=== PATIENT | male | born 1935 | race Caucasian/White ===

== ENCOUNTER 2019-08-14 14:12 | Inpatient (IN) | payer OTHER, MEDICARE ==
[~2019-08-14] VITALS: Ht 182.9 cm; Wt 72.3 kg
[~2019-08-14 14:12] MED LIST: ASPIRIN EC325 MG PO; DIOVAN 80 MG TA80 M1 PO; SIMVASTATIN40 MG PO; TOPROL XL25 MG PO; TOPROL XL50 MG PO; VITAMIN D31000 UNI2 PO; ZETIA10 MG PO
[2019-08-14 14:15] VITALS: BP 129/53
[2019-08-14 15:16] LABS: HEMATOCRIT 24.3 % (42.0-52.0); HEMOGLOBIN 7.9 gm/dL (14.0-18.0); MCH 28.4 pg (26.0-34.0); MCHC 32.4 g/dL (28.0-37.0); MCV 87.6 fL (80.0-100.0); PLATELET COUNT 178 thou/uL (150-400); RBC 2.77 mil/uL (4.50-6.00); RDW 16.7 % (10.5-14.5)
[2019-08-14 15:25] LABS: CALCIUM 9.4 mg/dL (8.5-10.1); CREATININE 1.2 mg/dL (0.7-1.3); POTASSIUM 3.8 mmol/L (3.5-5.1)
[2019-08-14 15:35] LABS: ALBUMIN 3.4 g/dL (3.4-5.0); TOTAL BILIRUBIN 0.7 mg/dL (<0.1-1.0); TOTAL PROTEIN 7.6 g/dL (6.4-8.2); TROPONIN-I 0.55 ng/mL (<0.06)
[2019-08-14 15:51] LABS: ABSOLUTE NEUTROPHILS 4.4 thou/uL (1.4-8.2)
[2019-08-14 15:52] LABS: ANISOCYTOSIS 1+; OVALOCYTES OCCASIONAL
[2019-08-14 17:37] VITALS: BP 115/54
[2019-08-14 18:00] VITALS: BP 127/70
[2019-08-14 18:08] LABS: % SATURATION 17 % (20-39); IRON 85 ug/dL (65-175); TIBC 486 ug/dL (250-450)
[2019-08-14 18:13] LABS: ABSOLUTE RETIC COUNT 0.1142 10^6/uL; OBSERVED RETIC COUNT 4.13 % (0.6-2.6)
[2019-08-14 18:34] LABS: FOLIC ACID 15.2 ng/mL (8.6-58.9)
--- NOTE | 2019-08-14 18:47 | NUR ---
RECEIVED PT. AT 1805; PT. A0X4; NO C/O PAIN; ST. FEELING DIZZIE & SOB WITH EXERTION; VS WNL; PT. SETTLE ON BED; HEART MONITOR APPLIED; FORMS SIGNED; WILL PASS ON REPORT;
[2019-08-14] MEDS ORDERED: COZAAR 25 MG TA25 M1 PO (19:21)
[2019-08-14] MEDS ORDERED: TORSEMIDE5 MG PO (19:21)
[2019-08-14] MEDS ORDERED: KLOR-CON 10 ER10 MEQ PO (19:22)
[2019-08-14] MEDS ORDERED: IRON 100 PLUS1 EACH PO (19:22)
[2019-08-14 20:38] VITALS: BP 98/52
[2019-08-15 01:00] VITALS: BP 108/47; BP 99/52
[2019-08-15 06:10] VITALS: BP 100/47
--- NOTE | 2019-08-15 07:51 | NUR ---
PATIENT CARES WERE ASSUMED AT SHIFT CHANGE. PATIENT WAS ASSESSED AND MEDS WERE PASSED. PATIENT WAS GIVEN ONE UNITE OF PRBC THE PATIENT HAD NO REACTION TO THIS TRANFUSION. HOURLY ROUNDING WAS DONE AND THE BED IS IN A LOW AND LOCKED POSITION
[2019-08-15 08:00] VITALS: BP 89/54
[2019-08-15 09:54] LABS: HEMATOCRIT 23.8 % (42.0-52.0); HEMOGLOBIN 7.8 gm/dL (14.0-18.0); MCH 28.7 pg (26.0-34.0); MCHC 32.8 g/dL (28.0-37.0); MCV 87.5 fL (80.0-100.0); RBC 2.72 mil/uL (4.50-6.00); RDW 16.2 % (10.5-14.5); WBC 5.2 thou/uL (4.0-11.0)
--- NOTE | 2019-08-15 10:20 | EKG ---
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: FAN : 1935 Requested By: David Batres Order Number: [id number] MD: Bari Torres Measurements Intervals [place] Rate: 98 P: 69 HI: 167 QRS: -21 QRSD: 179 T: 206 QT: 437 QTc: 559 Interpretive Statements Sinus rhythm Frequent PVCs Left bundle branch block Baseline wander in lead(s) V6 Compared to ECG 09/26/2004 06:52:39 Left bundle-branch block now present Intraventricular conduction delay no longer present Electronically Signed On 08-15-2019 10:20:40 AIRCRAFT MAINTENANCE ENGINEER by Bari Torres [email or web address] <ELECTRONICALLY SIGNED> By: Bari Torres MD 08/15/19 1020 1417 1417 Bari Torres MD /EPI
--- NOTE | 2019-08-15 10:21 | EKG ---
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: FAN : 1935 Requested By: David Batres Order Number: [id number] MD: Bari Torres Measurements Intervals [place] Rate: 72 P: 63 NE: 163 QRS: -33 QRSD: 177 T: 219 QT: 477 QTc: 523 Interpretive Statements Sinus rhythm Frequent PVCs Left bundle branch block Baseline wander in lead(s) V3 Compared to ECG 09/26/2004 06:52:39 Ventricular premature complex(es) now present Left bundle-branch block now present Intraventricular conduction delay no longer present Electronically Signed On 08-15-2019 10:21:01 SIDING COREBOARD INSPECTOR by Bari Torres [email or web address] <ELECTRONICALLY SIGNED> By: Bari Torres MD 08/15/19 1021 1544 1544 Bari Torres MD /EPI
[2019-08-15 16:00] VITALS: BP 106/44
--- NOTE | 2019-08-15 17:52 | NUR ---
ASSUMED CARE AT 0700, SHIFT ASSESSMENT DONE, MEDS GIVEN, VSS. DENIES DIZZINESS, WAS ABLE TO STAND UP AND CLEAN HIMSELF. SR, BBB, ROOM AIR. DENIES PAIN, NAUSEA, VOMITING. WILL CONTINUE TO ASSESS AND ASSIST WITH ADLs NEEDED.
[2019-08-15 19:13] VITALS: BP 80/44
[2019-08-15 23:29] VITALS: BP 86/43
[2019-08-16 04:34] LABS: HEMATOCRIT 23.1 % (42.0-52.0); HEMOGLOBIN 7.5 gm/dL (14.0-18.0); MCH 28.5 pg (26.0-34.0); MCHC 32.5 g/dL (28.0-37.0); MCV 87.8 fL (80.0-100.0); RBC 2.63 mil/uL (4.50-6.00); RDW 16.9 % (10.5-14.5); WBC 5.9 thou/uL (4.0-11.0)
[2019-08-16 04:44] LABS: CALCIUM 8.8 mg/dL (8.5-10.1); POTASSIUM 3.3 mmol/L (3.5-5.1)
--- NOTE | 2019-08-16 04:59 | NUR ---
ASSUMED PT CARE AT 1900. PT A/OX4, VITAL SIGN STABLE, ASSESSMENT CHARTED. NO COMPLAINTS OF SOB, NO COMPLAINTS OF PAIN. NO COMPLAINTS OF DIZZINESS. PT RESTED WELL THROUGH THE NIGHT. PROGRESSING TOWARD PLAN OF CARE. WILL CONTINUE TO MONITOR.
[2019-08-16 05:13] VITALS: BP 93/48
[2019-08-16 07:11] LABS: IgA 382 mg/dL (61-437); IgG 1131 mg/dL (700-1600); IgM 147 mg/dL (15-143)
--- NOTE | 2019-08-16 08:01 | HC ---
[facility] [place] [address] CONSULTATION Name: WOODY KENYON Room #: 218-P ADM IN M.R.#: [id number] Admission: 08/14/19 Attend Phys: Royal Frederick MD Discharge: Date of : 35 Report #: [id number] THIS REPORT FOR: //name// CC: Royal Stratton DATE OF SERVICE: 08/15/2019 CARDIOLOGY CONSULTATION INDICATION: Chest pain and fatigue. HISTORY OF PRESENT ILLNESS: This is an 83-year-old gentleman with a history of CABG, anemia, hypertension, carotid endarterectomy, presenting with fatigue and chest pain. The patient follows with Dr. Jerry Delarosa, last seen in June. He has a history of anemia, resumed on iron therapy this past summer. Lately, he has been having edema of the legs, started on Lasix. The patient reports feeling generalized fatigue for the past several weeks. He then developed bilateral shoulder discomfort with walking, relieved with rest and Tums. He denies any history of melena or bright red blood per rectum. There is no history of fever, chills or orthopnea. In the ER, he was found to have a hemoglobin of 7.9 and did receive a blood transfusion. PAST MEDICAL HISTORY: CAD with a CABG in 1979 and then a redo operation in 1990 with LEON to the LAD and SVG to RCA, and marginal branches. History of carotid endarterectomies. History of abdominal aortic aneurysm, history of hypertension, hypercholesterolemia and now edema. History of anemia. MEDICATIONS: At home include Toprol-XL 50 mg daily, Diovan 80 mg daily, aspirin once a day, Toprol-XL 25 mg at night, Zetia 10 mg daily, and Zocor 40 mg at night. ALLERGIES: PENICILLIN, CIPRO, CLINDAMYCIN, AND SULFA. SOCIAL HISTORY: Denies tobacco use. FAMILY HISTORY: Negative for premature CAD. REVIEW OF SYSTEMS: A full 10-point review of systems performed. Only the pertinent positives and negatives are described in the HPI. PHYSICAL EXAMINATION: VITAL SIGNS: Blood pressure is 100/60, heart rate is 81 beats per minute. GENERAL APPEARANCE: This is a well-developed, well-nourished male in no acute distress. HEENT: Normocephalic, atraumatic. Oral mucosa moist. [address] [address] CONSULTATION Name: WOODY KENYON [facility] Room #: 218-[facility] IN M.R.#: [id number] Admission: 08/14/19 Attend Phys: Royal Frederick MD Discharge: Date of : 35 Report #: [id number] NECK: Supple. LUNGS: Clear to auscultation. CARDIAC: Regular rate and rhythm, S1, S2 positive. ABDOMEN: Soft, nontender. EXTREMITIES: Trace to 1+ edema, no cyanosis. ECG reveals sinus rhythm, frequent PVCs, left bundle-branch block. LABORATORY VALUES: Peak troponin is 0.73. White count is 5.2, hemoglobin is 7.8, platelet count is 141, creatinine 1.2. ASSESSMENT AND PLAN: 1. Fatigue/weakness, most likely attributed to anemia. The etiology is unclear, has a chronic history. He did receive one transfusion, but the hemoglobin has not changed. Recommend a Hematology evaluation. 2. Coronary artery disease/coronary artery bypass graft, presenting with bilateral shoulder discomfort with exertion. Minimal troponin elevation with underlying left bundle branch block. Symptoms are exacerbated by his anemia. We will follow for now until his anemia evaluation is further evaluated. Continue with aspirin. 3. Hypertension, stable blood pressure. 4. Hypercholesterolemia, continue with statin therapy. <ELECTRONICALLY SIGNED> By: Bari Torres MD 08/16/19 0801 1106 1626 Bari Torres MD /nt
--- NOTE | 2019-08-16 10:21 | 2DMMODE ---
[facility] [place] [place] [address] 2 D/M-MODE ECHOCARDIOGRAM Name: WOODY KENYON Room #: 218-P ADM IN M.R.#: [id number] Admission: 08/14/19 Attend Phys: Lee Stratton, Discharge: Date of : 35 Report #: [id number] THIS REPORT FOR: //name// APPROVED REPORT Study performed: 08/16/2019 09:22:55 EXAM: Comprehensive 2D, Doppler, and color-flow Echocardiogram Patient Location: Echo lab Room #: 218 Status: routine BSA: 2.13 HR: 84 bpm BP: 93/48 mmHg Rhythm: Irregular Other Information Study Quality: Good Indications CHF. Hx: CABG x 2, cardiomyopathy, HTN, HLP, LBBB. 2D Dimensions RVDd: 49.33 mm IVSd: 7.91 (7-11mm) LVOT Diam: 21.63 (18-24mm) LVDd: 66.04 mm PWd: 10.65 (7-11mm) Ascending Ao: 29.51 (22-36mm) LVDs: 54.79 (25-40mm) Aortic Root: 33.15 mm Volumes Left Atrial Volume (Systole) Single Plane 4CH: 99.61 mL Single Plane 2CH: 92.08 mL LA ESV Index: 49.00 mL/m2 Aortic Valve AoV Peak Gilmer.: 1.83 m/s AO Peak Gr.: 13.37 mmHg LVOT Max P.81 mmHg AO Mean Gr.: 6.74 mmHg AO V2 Mean: 1.23 m/s LVOT Max V: 0.98 m/s AO V2 VTI: 36.20 cm TYREL Vmax: 1.96 cm2 Mitral Valve E/A Ratio: 2.0 [facility] [place] [address] 2 D/M-MODE ECHOCARDIOGRAM Name: WOODY KENYON [facility] Room #: 218-[facility] IN M.R.#: [id number] Admission: 08/14/19 Attend Phys: Lee Stratton, Discharge: Date of : 35 Report #: [id number] MV Decel. Time: 132.33 ms MV E Max Gilmer.: 1.27 m/s MV A Gilmer.: 0.63 m/s MV PHT: 38.37 ms IVRT: 96.89 ms Pulmonary Valve PV Peak Gilmer.: 1.31 m/s PV Peak Gr.: 6.91 mmHg Tricuspid Valve TR Peak Gilmer.: 3.00 m/s RAP Estimate: 5.00 mmHg TR Peak Gr.: 36.04 mmHg PA Pressure: 41.00 mmHg Left Ventricle Left ventricle is dilated. There is normal left ventricular wall thickness. Left ventricular systolic function is severely decreased. LVEF is 30%. Severe diastolic dysfunction is present (restrictive filling). Right Ventricle Right ventricle is dilated. Atria Left atrium is severely dilated. The right atrium size is normal. Aortic Valve The aortic valve is normal in structure; moderately sclerotic. No aortic regurgitation is present. There is no aortic valvular stenosis. Mitral Valve Mitral valve leaflets are mildly thickened. Moderate mitral regurgitation. Tricuspid Valve The tricuspid valve is normal in structure. Mild tricuspid regurgitation. Estimated PAP is 40-45mmHg. Pulmonic Valve The pulmonary valve is normal in structure. Mild pulmonic regurgitation. Great Vessels The aortic root is normal in size. The ascending aorta is normal in [facility] [address] [place] [address] 2 D/M-MODE ECHOCARDIOGRAM Name: WOODY KENYON Room #: 218-P ADM IN M.R.#: [id number] Admission: 08/14/19 Attend Phys: Lee Stratton, Discharge: Date of : 35 Report #: [id number] size. IVC is normal in size and collapses >50% with inspiration. Pericardium There is no pericardial effusion. <Conclusion> Left ventricle is dilated. Left ventricular systolic function is severely decreased. Severe diastolic dysfunction is present (restrictive filling). Right ventricle is dilated. Left atrium is severely dilated. The aortic valve is normal in structure; moderately sclerotic. Moderate mitral regurgitation. Mild tricuspid regurgitation. Estimated PAP is 40-45mmHg. <ELECTRONICALLY SIGNED> By: Bari Torres MD 08/16/19 1020 1020 1020 Bari Torres MD /INF
--- NOTE | 2019-08-16 12:07 | NUR ---
ASSUMED CARE AT 0700, SHIFT ASSESMENT DONE, DENIES PAIN, NAUSEA, VOMITING. WENT FOR AN ECHO THIS AM. GI CONSULTED, SWITCHED TO CLEAR LIQUID DIET. PATIENT UNDECIDED ABOUT COLONOSCPY, WILL DECIDE LATER. WILL CONTINUE TO ASSESS AND ASSIST WITH ADLs NEEDED.
--- NOTE | 2019-08-16 16:22 | NUR ---
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 he lives with his in independent living. he use no assistive device and cont to drive. he plans home no needs. PCP Dr Stratton. Colonoscopy in am. Hx of heart attacksx5 Dr Bill his pharmaceutical assistant.
[2019-08-16 16:35] VITALS: BP 109/60
[2019-08-16 19:21] VITALS: BP 106/45
[2019-08-16 20:00] VITALS: BP 106/45
[2019-08-17 04:57] VITALS: BP 125/61
--- NOTE | 2019-08-17 06:07 | NUR ---
ASSUMED PT CARE AROUND 1900. A&OX4. DENIES ANY PAIN OR SOA. PT COMPLETED BOWEL PREP ORDERED. PT IS UP AD VALORIE IN THE ROOM WITH STEADY GAIT. PT WAS INSTRUCTED TO LET RN SEE HIS STOOL TO ASSESS IF IT WAS CLEAR AFTER HAVING BOWEL MOVEMENT. EACH TIME, PT FLUSHED THE TOILET SO RN WAS UNABLE TO ASSESS STOOL. PT WAS REMINDED AGAIN THIS MORNING TO LET RN SEE HIS STOOL NEXT TIME HE HAS A BOWEL MOVEMENT. PT REPORTS THE STOOL APPEARS "LIQUID AND CLEAR". RN UNABLE TO VERIFY HIS DESCRIPTION. WILL CONTINUE TO MONITOR. PT SLEPT MOST OF THE NIGHT. PROGRESSING TOWARD POC GOALS.
[2019-08-17 07:51] VITALS: BP 101/50
[2019-08-17 10:48] LABS: HEMATOCRIT 26.2 % (42.0-52.0); HEMOGLOBIN 8.5 gm/dL (14.0-18.0)
[2019-08-17 16:09] LABS: KAPPA/LAMBDA RATIO 2.02 (0.26-1.65); LAMBDA FREE LIGHT CHAINS 27.2 mg/L (5.7-26.3)
[2019-08-17 16:45] VITALS: BP 98/53
[2019-08-17 19:40] VITALS: BP 112/58
[2019-08-17 22:14] VITALS: BP 128/58
--- NOTE | 2019-08-18 04:26 | NUR ---
Pt transferred from via WC. A/OX4,VSS. Pt is up ad celina, denies pain on assessment and verbalizes feeling much better and looking forward to discharge today if Hgb is stable. Resting quietly at this time without distress.
[2019-08-18 04:50] VITALS: BP 102/54
[2019-08-18 08:17] VITALS: BP 117/59
--- NOTE | 2019-08-18 11:28 | NUR ---
ASSUMED CARE OF PT AT 0700. PT IS AMBULATORY. IV REMOVED WITH NO SWELLING OR DRAINAGE. HGB IS 8.9. PT WILL BE DISCHARGED TODAY TO HOME WITH SPOUSE. CALL LIGHT IS WITHIN REACH. PT SIGNED DISCHARGE PAPERS. WILL CONTINUE TO MONITOR PT UNTIL PT IS DISCHARGED.
[2019-08-18 11:34] VITALS: BP 117/39
[2019-08-18 14:09] LABS: GLOBULIN TOTAL 3.1 g/dL (2.2-3.9); M-SPIKE Not Observed g/dL (Not Observed)
--- NOTE | 2019-08-20 20:06 | PATH ---
[facility] [address] [place] [address] PATHOLOGY RPT PROCEDURE Name: WOODY KENYON Room #: 439-P DIS IN M.R.#: [id number] Admission: 08/14/19 Date of : 35 Discharge: 08/18/19 Report #: [id number] Path Case #: [id number] [facility] Accession Number: [id number] . 01 Material submitted: . PART A: duodenum - BIOPSY OF RANDOM DUODENAL TISSUE TO R/O SPRUE PART B: stomach - BIOPSY OF GASTRITIS TO R/O H. PYLORI PART C: colon - POLYP AT ASCENDING COLON. Modifiers: ascending PART D: colon - POLYP AT TRANSVERSE COLON. Modifiers: transverse PART E: colon - POLYP AT DESCENDING COLON X2. Modifiers: descending PART F: colon - POLYP AT SIGMOID COLON. Modifiers: sigmoid . 01 Clinical history: . Pre-op diagnosis: Anemia Post-op diagnosis: Esophagitis, hiatal hernia, gastritis, duodenal ulcers A. R/O sprue B. R/O H. pylori . 02 Diagnosis: A. "BX of random duodenal tissue to R/O sprue", biopsy: - Small bowel/duodenal mucosa with mild reactive/regenerative changes and mild acute duodenitis; no evidence of celiac sprue. . B. "BX of gastritis to R/O H. pylori", biopsy: - Gastric mucosa with mild reactive changes and mild chronic inflammation. - Negative H. pylori immunohistochemical stain (block B1); control reacted appropriately. . C. "Polyp at ascending colon", biopsy: - Tubular adenoma; no high-grade dysplasia. . D. "Polyp at transverse colon", biopsy: - Tubular adenoma; no high-grade dysplasia. . E. "Polyp at descending colon x2", biopsy: - Tubular adenoma; no high-grade dysplasia. . F. "Polyp at sigmoid colon", biopsy: - Tubular adenoma; no high-grade dysplasia. . (CLW:lilia; 08/20/2019) MBR 08/20/2019 1330 Local . 02 Electronically signed: . Estrellita Cabrera MD, Pathologist NPI- [id number] . [address] [address] PATHOLOGY RPT PROCEDURE Name: WOODY KENYON Room #: 439-P DIS IN M.R.#: [id number] Admission: 08/14/19 Date of : 35 Discharge: 08/18/19 Report #: [id number] Path Case #: [id number] Gross description: . A. The specimen is received in formalin, labeled "Woody Brandeck, biopsy of duodenal tissue to R/O sprue". Received are two segments of pale erickson soft tissue ranging in size from 0.3 to 0.4 cm in maximum dimensions. The specimen is submitted entirely in cassette A1. . B. The specimen is received in formalin, labeled "Woody Krambeck, biopsy of gastritis". Received are four segments of pale erickson soft tissue ranging in size from 0.3 to 0.6 cm in maximum dimensions. The specimen is submitted entirely in cassette B1. . C. The specimen is received in formalin, labeled "Woody Krambeck, polyp at ascending colon". Received is a segment of pale erickson soft tissue measuring 0.4 cm in maximum dimensions. The specimen is submitted entirely in cassette C1. . D. The specimen is received in formalin, labeled "Woody Krambeck, polyp at transverse colon". Received are two segments of pale erickson soft tissue measuring 0.3 cm each in maximum dimensions. The specimen is submitted entirely in cassette D1. . E. The specimen is received in formalin, labeled "Woody Krambeck, polyp at descending colon". Received are three segments of pale erickson soft tissue ranging in size from 0.3 to 0.4 cm in maximum dimensions. The specimen is submitted entirely in cassette E1. . F. The specimen is received in formalin, labeled "Woody Krambeck, polyp at sigmoid colon". Received are four segments of pale erickson soft tissue ranging in size from 0.1 to 0.2 cm in maximum dimensions. The specimen is submitted entirely in cassette F1. (CAA; 08/19/2019) QAC/QAC 08/20/[address] [place] [address] . 02 Pathologist provided ICD-10: K29.80, K29.50, D12.2, D12.3, D12.4, D12.5 . 02 CPT . 033631, 603217, 669143, 172619, 454513, 930041, Z55692 Specimen Comment: A courtesy copy of this report has been sent to [phone], [phone] Specimen Comment: [phone] Specimen Comment: Report sent to / DR ELISE Performed at: 01 [facility] Radha Torres [address], [place], [place] [address] MD Perry Donnelly MD Phone: [phone] Performed at: 02 [facility] [address] [place] [address] PATHOLOGY RPT PROCEDURE Name: WOODY KENYON Room #: 439-P DIS IN M.R.#: [id number] Admission: 08/14/19 Date of : 35 Discharge: 08/18/19 Report #: [id number] Path Case #: [id number] [address] [place], [place] [id number] MD Clare Matias MD Phone: [phone]
--- NOTE | 2019-08-25 08:08 | P ---
[facility] [place] [address] PROCEDURE REPORT Name: WOODY KENYON Room #: 439-P [facility] IN M.R.#: [id number] Admission: 08/14/19 Attend Phys: Lee Stratton MD Discharge: 08/18/19 Date of : 35 Report #: [id number] THIS REPORT FOR: //name// CC: Lee Hall MD DATE OF SERVICE: 08/17/2019 PROCEDURE PERFORMED: Colonoscopy with biopsies. HISTORY OF PRESENT ILLNESS: The patient is an 83-year-old male with a history of generalized fatigue and anemia, was transfused 1 unit of packed cells. Stool is Hemoccult negative x 1. The patient does take aspirin on a regular basis. Upper endoscopy was just performed showing grade A erosive esophagitis, small hiatal hernia, mild gastritis with erosions and small duodenal ulcers. No evidence of bleeding. Plan is for colonoscopy next. The patient has never had a screening colonoscopy. No family history of colon cancer. DESCRIPTION OF PROCEDURE: The risks and benefits of the procedure were explained to the patient, those risks including but not limited to bleeding, perforation and the risk of sedation. He understood these risks and gave informed consent. Sedation was given using propofol per Anesthesia. Next, a digital rectal exam was initially performed, which showed an enlarged prostate, but otherwise normal. Next, using a standard Olympus colonoscope, the scope was placed in the patient's anus and advanced under direct vision to the cecum. The overall prep was good. The cecum and ileocecal valve were normal in appearance. In the ascending colon, a 4-mm sessile polyp was noted. This was removed with cold forceps, otherwise normal. In the transverse colon, 5 mm sessile polyp also removed with cold forceps, otherwise normal. Descending colon, 2 polyps ranging from 3-4 mm in size were noted, both removed with cold forceps, otherwise normal. In the sigmoid colon, a 4 mm sessile polyp also removed with cold forceps. The rectal mucosa was normal. On retroflexion, small nonbleeding internal hemorrhoids were noted. The scope was then withdrawn and the procedure terminated. The patient tolerated the procedure well. IMPRESSION: 1. Multiple small colonic polyps as described above. 2. Small internal hemorrhoids. 3. Otherwise, normal colonoscopy. RECOMMENDATIONS: There were no signs of GI bleed on EGD or colonoscopy today; however, the patient does have mild esophagitis, gastritis with erosions and very small duodenal ulcers, which could cause bleeding; however, his stool was Hemoccult negative x 1 here. Would recommend daily PPI therapy and monitoring hemoglobin. Biopsies were also obtained today to rule out the possibility of [address] [address] PROCEDURE REPORT Name: WOODY KENYON Room #: 439-P DIS IN M.R.#: [id number] Admission: 08/14/19 Attend Phys: Lee Stratton MD Discharge: 08/18/19 Date of : 35 Report #: [id number] celiac sprue. Thank you for allowing me to participate in his care. <ELECTRONICALLY SIGNED> By: Andi Aguirre MD 08/25/19 0808 1328 1950 Andi Aguirre MD /nt
--- NOTE | 2019-08-25 08:08 | P ---
[facility] [place] [address] [place] [address] PROCEDURE REPORT Name: WOODY KENYON Room #: 439-P [facility] IN M.R.#: [id number] Admission: 08/14/19 Attend Phys: Lee Stratton MD Discharge: 08/18/19 Date of : 35 Report #: [id number] THIS REPORT FOR: //name// CC: Lee Hall MD DATE OF SERVICE: 08/17/2019 PROCEDURE PERFORMED: Upper endoscopy with biopsies. HISTORY OF PRESENT ILLNESS: The patient is an 83-year-old male with generalized fatigue and dizziness. He has a history of coronary artery disease, on aspirin on a daily basis. He has a history of anemia, low ferritin. Stool Hemoccult negative x 1 during this hospitalization. He denies any reflux. No previous history of endoscopy. Admit hemoglobin was 7.9. He underwent a transfusion of 1 unit of packed cells, his hemoglobin actually dropped to 7.5 yesterday, but is 8.5 today. He has not received any further transfusions. Plan is for EGD and colonoscopy. DESCRIPTION OF PROCEDURE: The risks and benefits of the procedure were explained to the patient, those risks including but not limited to bleeding, perforation and the risk of sedation. He understood these risks and gave informed consent. Sedation was given using propofol per anesthesia. Next, using a standard Olympus upper endoscope, the scope was placed in the patient's mouth and advanced under direct vision through the esophagus, stomach and into the second portion of the duodenum. The larynx was normal in appearance. The upper and mid esophagus was normal. In the distal esophagus at the GE junction, mild grade A erosive esophagitis was noted. No evidence of bleeding. Upon entering the stomach, a small hiatal hernia was noted. The gastric fundus and upper body were normal. In the distal body and antrum, there were several small erosions and mild gastritis was noted. No evidence of bleeding. Biopsies were obtained to rule out H. pylori. The pylorus was normal and patent. In the duodenal bulb, several small 2-3 mm clean white base ulcers were noted. No evidence of bleeding. The first and second portion of the duodenum were normal. Biopsies were obtained to rule out the possibility of celiac sprue. The scope was then withdrawn and the procedure terminated. The patient tolerated the procedure well. IMPRESSION: 1. Grade A erosive esophagitis. 2. Small hiatal hernia. 3. Gastritis with several erosions. 4. Small duodenal ulcers. 5. No evidence of bleeding on exam today. [address] [address] PROCEDURE REPORT Name: WOODY KENYON Room #: 439-P [facility] IN M.R.#: [id number] Admission: 08/14/19 Attend Phys: Lee Stratton MD Discharge: 08/18/19 Date of : 35 Report #: [id number] RECOMMENDATIONS: 1. Await biopsy results. 2. We will start daily PPI therapy. 3. We will proceed with colonoscopy next today. Thank you for allowing me to participate in his care. <ELECTRONICALLY SIGNED> By: Andi Aguirre MD 08/25/19 0808 1245 1524 Andi Aguirre MD /nt
== END 2019-08-18 18:53 | disposition home or self-care (01) | DRG 280 ==
LOC: ER 14:12 → EROBS 16:48 → 2N 16:48 → 4S 08-17 22:07 → ENTRNSPT 08-18 12:22 → EDTRNSPTSTS 08-18 12:25 → 4S 08-18 18:53
PROVIDERS: Hospitalist; Internal Medicine Cardiovascular Disease; Internal Medicine Hematology & Oncology; Physician Assistant; ADMIT Family Medicine
DX: I21.4 Non-ST elevation (NSTEMI) myocardial infarction (principal); E43 Unspecified severe protein-calorie malnutrition; K22.11 Ulcer of esophagus with bleeding; K29.01 Acute gastritis with bleeding; K26.4 Chronic or unspecified duodenal ulcer with hemorrhage; I42.9 Cardiomyopathy, unspecified; K44.9 Diaphragmatic hernia without obstruction or gangrene; D64.9 Anemia, unspecified; E78.00 Pure hypercholesterolemia, unspecified; K63.5 Polyp of colon; K64.8 Other hemorrhoids; I25.119 Atherosclerotic heart disease of native coronary artery with unspecified angina pectoris; E78.5 Hyperlipidemia, unspecified; I44.7 Left bundle-branch block, unspecified; D50.9 Iron deficiency anemia, unspecified; I50.9 Heart failure, unspecified; I11.0 Hypertensive heart disease with heart failure; Z68.21 Body mass index [BMI] 21.0-21.9, adult; I25.2 Old myocardial infarction; Z95.1 Presence of aortocoronary bypass graft; Z79.899 Other long term (current) drug therapy; Z79.82 Long term (current) use of aspirin; Z88.0 Allergy status to penicillin; Z88.8 Allergy status to other drugs, medicaments and biological substances; Z88.2 Allergy status to sulfonamides; Z90.89 Acquired absence of other organs
CPT/HCPCS: 10081; 10102; 62110; 62900; 70005

== ENCOUNTER 2019-10-13 16:18 | Inpatient (IN) | payer OTHER, MEDICARE ==
[~2019-10-13] VITALS: Ht 182.9 cm; Wt 91.6 kg
[~2019-10-13 16:18] MED LIST changes: +COZAAR 25 MG TA25 M1 PO; +IRON 100 PLUS1 EACH PO; +KLOR-CON 10 ER10 MEQ PO; +TORSEMIDE5 MG PO
[2019-10-13 16:19] VITALS: BP 108/42
[2019-10-13 17:26] LABS: ABSOLUTE NEUTROPHILS 5.4 thou/uL (1.4-8.2); BASOPHILS 0.9 % (0.0-2.0); EOSINOPHILS 0.8 % (0.0-3.0); HEMATOCRIT 27.3 % (42.0-52.0); HEMOGLOBIN 8.7 gm/dL (14.0-18.0); LYMPHOCYTES 9.8 % (24.0-44.0); MCH 28.6 pg (26.0-34.0); MCHC 31.9 g/dL (28.0-37.0); MCV 89.6 fL (80.0-100.0); MONOCYTES 9.1 % (1.0-8.0); PLATELET COUNT 171 thou/uL (150-400); POLYS 79.4 % (36.0-66.0); RBC 3.05 mil/uL (4.50-6.00); RDW 19.1 % (10.5-14.5); WBC 6.7 thou/uL (4.0-11.0)
[2019-10-13 17:36] LABS: CALCIUM 10.5 mg/dL (8.5-10.1); CREATININE 1.1 mg/dL (0.7-1.3); POTASSIUM 4.2 mmol/L (3.5-5.1)
[2019-10-13 17:46] LABS: ALBUMIN 3.5 g/dL (3.4-5.0); TOTAL BILIRUBIN 0.8 mg/dL (<0.1-1.0)
[2019-10-13 17:48] LABS: TROPONIN-I 1.48 ng/mL (<0.06)
[2019-10-13 18:56] LABS: ANISOCYTOSIS 2+; OVALOCYTES FEW
[2019-10-13 20:21] VITALS: BP 105/47
[2019-10-13 20:56] VITALS: BP 103/50
[2019-10-14] VITALS (8 sets, daily range): BP systolic 94–108; BP diastolic 37–62
[2019-10-14 05:46] LABS: HEMATOCRIT 24.8 % (42.0-52.0); HEMOGLOBIN 8.1 gm/dL (14.0-18.0); MCH 28.8 pg (26.0-34.0); MCHC 32.8 g/dL (28.0-37.0); MCV 87.7 fL (80.0-100.0); RBC 2.83 mil/uL (4.50-6.00); RDW 18.7 % (10.5-14.5); WBC 4.9 thou/uL (4.0-11.0)
[2019-10-14 05:59] LABS: ALBUMIN 3.1 g/dL (3.4-5.0); CREATININE 1.1 mg/dL (0.7-1.3); POTASSIUM 3.5 mmol/L (3.5-5.1); TOTAL BILIRUBIN 0.9 mg/dL (<0.1-1.0); TOTAL PROTEIN 7.3 g/dL (6.4-8.2)
[2019-10-14 06:28] LABS: TROPONIN-I 1.48 ng/mL (<0.06)
[2019-10-14 08:35] LABS: % SATURATION 4 % (20-39); IRON 16 ug/dL (65-175); TIBC 440 ug/dL (250-450)
--- NOTE | 2019-10-14 08:48 | EKG ---
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 10/14/19 0847 1703 170 Jerry Delarosa MD, [facility] /EPI
[2019-10-14 13:51] LABS: OBSERVED RETIC COUNT 3.38 % (0.6-2.6)
[2019-10-15 04:39] VITALS: BP 94/59
[2019-10-15 05:48] LABS: HEMATOCRIT 27.2 % (42.0-52.0); HEMOGLOBIN 8.9 gm/dL (14.0-18.0); MCH 28.9 pg (26.0-34.0); MCHC 32.8 g/dL (28.0-37.0); RBC 3.09 mil/uL (4.50-6.00); WBC 5.3 thou/uL (4.0-11.0)
[2019-10-15 06:49] LABS: FOLIC ACID 19.3 ng/mL (8.6-58.9)
[2019-10-15 06:58] VITALS: BP 112/59
--- NOTE | 2019-10-15 13:18 | CATHLAB ---
[facility] [address] [place] [address] INVASIVE PROCEDURE REPORT Name: WOODY KENYON Room #: 357-P ADM IN M.R.#: [id number] Admission: 10/13/19 Attend Phys: Lee Strtaton, Discharge: Date of : 35 Report #: [id number] THIS REPORT FOR: //name// APPROVED REPORT Study performed: 10/15/2019 08:57:46 Patient Details Patient Status: In-Patient Room #: The patient is a 83 year-old male Event Personnel Jerry Delarosa Supervising Librarian, Yarelis Poe RTR, TRACTOR SWEEPER DRIVER Monitor, Katherine Angelo RN RN, Luci Hawthorne RTR Scrub Procedures Performed Art Access - R femoral artery* Left Heart Cath Coronaries, Bypass Grafts [id number] LHCCORCABG 11021 Initial Mod Sed Same Phys/QHP Gr5y 975395 60875 Mod Sed Same Phys/QHP Ea 596698 Hemostasis w/ Mynx Indication Chest pain Procedure Narrative The patient was brought electively to the Cardiac Catheterization Laboratory and was prepped and draped in a sterile manner. The Right Groin^ was infiltrated with 1% Lidocaine subcutaneous anesthesia. A PINNACLE 6FR Sheath #[id number] sheath was inserted into the RFA^. Coronary angiography was performed using coronary diagnostic catheters. The right coronary system was accessed and visualized with a JR4 catheter. The left coronary system was accessed and visualized with a JL4 catheter. The left ventricle was accessed and visualized with a ANGLE PIG catheter. Left ventriculogram was performed in 30 degree projection. The patient tolerated the procedure well and there were no complications associated with the procedure. Intraoperative Conscious Sedation Sedation start time: 858 Case end Time: 939 Fentanyl 25 mcg Versed 1 mg Fluoro Time: 14.60 minutes Dose: DAP 93813.00 cGycm2 2046 mGy [facility] [place] [address] INVASIVE PROCEDURE REPORT Name: WOODY KENYON Room #: 357-P [facility] IN .R.#: [id number] Admission: 10/13/19 Attend Phys: Lee Stratton, Discharge: Date of : 35 Report #: [id number] Contrast Type and Amount: Visipaque 150 ml Coronary Angiography The patient's coronary anatomy is right dominant. Diagnostic Cath Left Main Mild plaquing LAD Occluded LAD after near its origin Widely patent left internal mammary to the LAD. Mild plaquing at the origin of the CARMENZA. Excellent runoff into the LAD and single diagonal branch. Faint incj-of-phkgz collaterals to the distal right coronary Circumflex 90% proximal circumflex stenosis although this feeds only a distal, small terminal marginal branch OM1 Small high take off first marginal branch with ostial 95% stenosis OM2 Widely patent vein graft to the second marginal branch. Both proximal and distal anastomotic sites are widely patent. Right Coronary Occluded right coronary at its origin. Occluded vein graft to the right coronary Left Ventriculography The left ventricle is severely dilated in size with abnormal contractility. The left ventricular ejection fraction is estimated to be 25%. There is 1+ mitral insufficiency. Hemodynamics The aortic pressure is 97/70 mmHg with a mean of 70 mmHg. The left ventricular pressure is 120/17 mmHg with a mean of mmHg. The left ventricular end diastolic pressure is 29 mmHg. Conclusion 1. Severe left ventricular dysfunction with left ventricular enlargement. Ejection fraction 25%. 2. Severe [place] coronary artery disease 3. Patent left internal mammary to the LAD. Patent vein graft to the marginal branch. Occluded vein graft to the right coronary Recommendations Cardiac Rehabilitation Referral Aggressive Medical Therapy <ELECTRONICALLY SIGNED> By: Jerry Delarosa MD, [facility] 10/15/19 1318 Jerry Delarosa MD, FACC /INF
--- NOTE | 2019-10-15 14:29 | EKG ---
[address] [place] [address] ELECTROCARDIOGRAM REPORT Name: BRONSON KENYONLEY Room #: 357-P ADM IN M.R.#: [id number] Admission: 10/13/19 Attend Phys: Lee Stratton MD Discharge: Date of : 35 Report #: [id number] THIS REPORT FOR: //name// [facility] Test Date: 2019-10-15 Test Time: 07:54:16 Pat Name: WOODY KENYON Department: Room: 357 P Gender: M Embedded Processor: MERCEDES : 1935 Requested By: Jerry Delarosa Order Number: [id number] MD: Ashu Donald Measurements Intervals [place] Rate: 79 P: 87 MD: 164 QRS: -34 QRSD: 174 T: 222 QT: 404 QTc: 464 Interpretive Statements Sinus rhythm Ventricular bigeminy IVCD, consider atypical LBBB Compared to ECG 10/13/2019 17:03:44 No significant changes Electronically Signed On 10-15-2019 14:28:47 STRUCTURAL ARCHITECT by Ashu Donald [email or web address] <ELECTRONICALLY SIGNED> By: Ashu Donald MD 10/15/19 1428 0754 0754 Ashu Donald MD /EPI
[2019-10-15 18:06] LABS: IgA 418 mg/dL (61-437); IgG 1420 mg/dL (700-1600); IgM 157 mg/dL (15-143)
[2019-10-15 18:59] VITALS: BP 110/55
[2019-10-16 03:32] VITALS: BP 96/48
[2019-10-16 03:42] LABS: HEMATOCRIT 30.2 % (42.0-52.0); HEMOGLOBIN 9.6 gm/dL (14.0-18.0); MCH 28.2 pg (26.0-34.0); MCHC 31.8 g/dL (28.0-37.0); MCV 88.7 fL (80.0-100.0); RBC 3.41 mil/uL (4.50-6.00); RDW 19.3 % (10.5-14.5); WBC 6.2 thou/uL (4.0-11.0)
[2019-10-16 03:58] LABS: CALCIUM 9.1 mg/dL (8.5-10.1); CREATININE 1.2 mg/dL (0.7-1.3); POTASSIUM 3.5 mmol/L (3.5-5.1)
[2019-10-16 07:15] VITALS: BP 99/57
[2019-10-16 11:17] VITALS: BP 108/58
[2019-10-16 15:14] VITALS: BP 122/50
[2019-10-16 20:05] VITALS: BP 116/60
[2019-10-17 05:00] VITALS: BP 95/54
[2019-10-17 07:48] VITALS: BP 118/56
[2019-10-17 15:30] VITALS: BP 104/44
[2019-10-17 19:06] VITALS: BP 105/52
[2019-10-18 04:08] VITALS: BP 103/51
[2019-10-18 07:05] VITALS: BP 120/90
[2019-10-18 11:05] VITALS: BP 102/54
[2019-10-18 11:38] VITALS: BP 102/54
== END 2019-10-18 13:35 | disposition home or self-care (01) | DRG 280 ==
LOC: ER 16:18 → EROBS 19:04 → 3W 19:04 → ENTRNSPT 10-18 13:20 → EDTRNSPTSTS 10-18 13:23 → 3W 10-18 13:35
PROVIDERS: Emergency Medicine; Internal Medicine; Internal Medicine Hematology & Oncology; Nurse Practitioner; ADMIT Family Medicine
PROC: 30233N1 Transfusion of Nonautologous Red Blood Cells into Peripheral Vein, Percutaneous Approach (ICD-10-PCS; principal; 2019-10-14)
PROC: 4A023N7 Measurement of Cardiac Sampling and Pressure, Left Heart, Percutaneous Approach (ICD-10-PCS; 2019-10-15)
PROC: B215YZZ Fluoroscopy of Left Heart using Other Contrast (ICD-10-PCS; 2019-10-15)
PROC: B211YZZ Fluoroscopy of Multiple Coronary Arteries using Other Contrast (ICD-10-PCS; 2019-10-15)
DX: I21.4 Non-ST elevation (NSTEMI) myocardial infarction (principal); I50.23 Acute on chronic systolic (congestive) heart failure; D62 Acute posthemorrhagic anemia; E78.00 Pure hypercholesterolemia, unspecified; E78.5 Hyperlipidemia, unspecified; I71.4 Abdominal aortic aneurysm, without rupture; I25.5 Ischemic cardiomyopathy; I11.0 Hypertensive heart disease with heart failure; I95.9 Hypotension, unspecified; I25.10 Atherosclerotic heart disease of native coronary artery without angina pectoris; I65.29 Occlusion and stenosis of unspecified carotid artery; D53.9 Nutritional anemia, unspecified; I25.2 Old myocardial infarction; Z95.5 Presence of coronary angioplasty implant and graft; Z95.1 Presence of aortocoronary bypass graft; Z79.82 Long term (current) use of aspirin; Z79.899 Other long term (current) drug therapy; Z88.1 Allergy status to other antibiotic agents; Z88.0 Allergy status to penicillin; Z88.2 Allergy status to sulfonamides; Z88.8 Allergy status to other drugs, medicaments and biological substances
CPT/HCPCS: 10879

== ENCOUNTER → 2019-11-03 | Outpatient (CLI) | payer OTHER, MEDICARE | LOC: SJCVC 13:52 | DX: I44.7 Left bundle-branch block, unspecified (principal); R94.31 Abnormal electrocardiogram [ECG] [EKG]; I25.5 Ischemic cardiomyopathy; I10 Essential (primary) hypertension; I25.810 Atherosclerosis of coronary artery bypass graft(s) without angina pectoris; E78.5 Hyperlipidemia, unspecified; Z95.1 Presence of aortocoronary bypass graft; Z79.82 Long term (current) use of aspirin; Z79.899 Other long term (current) drug therapy; Z87.891 Personal history of nicotine dependence ==

== ENCOUNTER 2019-11-08 08:01 | Inpatient (IN) | payer OTHER, MEDICARE ==
[~2019-11-08] VITALS: Ht 182.9 cm; Wt 88.5 kg
[2019-11-08] VITALS (10 sets, daily range): BP systolic 97–129; BP diastolic 43–74
[2019-11-08 08:55] LABS: ABSOLUTE NEUTROPHILS 4.1 thou/uL (1.4-8.2); BASOPHILS 1.6 % (0.0-2.0); CALCIUM 9.4 mg/dL (8.5-10.1); HEMATOCRIT 37.3 % (42.0-52.0); HEMOGLOBIN 12.1 gm/dL (14.0-18.0); LYMPHOCYTES 15.2 % (24.0-44.0); MCH 29.2 pg (26.0-34.0); MCHC 32.5 g/dL (28.0-37.0); MCV 89.8 fL (80.0-100.0); MONOCYTES 9.9 % (1.0-8.0); PLATELET COUNT 131 thou/uL (150-400); POLYS 70.3 % (36.0-66.0); RBC 4.15 mil/uL (4.50-6.00); RDW 18.7 % (10.5-14.5); WBC 5.8 thou/uL (4.0-11.0)
[2019-11-08 09:02] LABS: INR 1.1; PROTIME 11.6 Seconds (9.3-11.4)
[2019-11-08 10:09] LABS: ANISOCYTOSIS 2+; PLATELET ESTIMATE NORMAL
--- NOTE | 2019-11-08 19:53 | NUR ---
ASSUMMED PT CARE AT APPROXIMATELY 1400. PT A&O X4. ASSESSMENT CHARTED. FALL PRECAUTIONS IN PLACE. PT DENIES HAVING CHEST PAIN. PT DENIES HAVING SOB. PT STATED HIS L CHEST PACEMAKER SITE HAD PAIN. PT RECIEVED ANALGESICS. PT STATED ANALGESICS HELPED RELIEVE PAIN. IMMOBILIZER IN PLACE. L CHEST PACEMAKER SITE C/D/I. VITAL SIGNS STABLE. ADMISSION COMPLETE. EDUCATED PT AND PT'S SPOUSE ABOUT POC PT AND PT'S SPOUSE STATED UNDERSTANDING AND DENIED HAVING FURTHER CONCERNS. NOTICED PT HAD NOT VOIDED SINCE ADMIT TO UNIT. BLADDER SCANNED SHOWED 550 RETAINING URINE. PT ATTEMPTED TO VOID. COULD NOT VOID. NOTIFIED TIMEKEEPING SUPERVISOR RN. PT VOIDED WHEN I WAS LEAVING UNIT. COMMUNICATED C TIMEKEEPING SUPERVISOR RN THAT PT HAD VOIDED. PT COMFROTABLE IN BED. PT DENIES HAVING FURTHER CONCERNS.
[2019-11-09 01:05] VITALS: BP 113/53
[2019-11-09 05:37] VITALS: BP 111/55
--- NOTE | 2019-11-09 07:27 | NUR ---
PATIENTS CARES WERE ASSUMED AT SHIFT CHANGE. PATIENT WAS ASSESSED AND MEDS WERE PASSED.PATIENT HAD A HARD TIME SLEEPING THIS SHIFT. PATIENT STATED HE IS READY TO GO HOME. PATIENT DID VOID APPROX 900CC THIS SHIFT.AFTER A HARD TIME STARTING HIS URINE AFTER A CATH WAS DC'D. HOURLY ROUNDS WERE DONE.
[2019-11-09 07:55] VITALS: BP 116/57
[2019-11-09 10:00] VITALS: BP 116/57
--- NOTE | 2019-11-09 11:00 | NUR ---
ASSUMMED PT CARE AT APPROXIMATELY 0700. PT A&O X4. ASSESSMENT CHARTED. FALL PRECAUTIONS IN PLACE. PT DENIES HAVING CHEST PAIN. PT DENIES HAVING SOB. PT DENIES HAVING ACUTE PAIN. L CHEST ICD SITE C/D/I. VITAL SIGNS STABLE. PT DISCHARGING HOME C SELF CARE. PT RECIEVED DISCHARGE EDUCATION. PT STATED UNDERSTANDING AND DENIED HAVING FURTHER QUESTIONS. PT AMBULATES STEADY/INDEPENDENT. IV'S DC. TELE DC. PT HAS PERSONAL BELONGINGS AND PACEMAKER BOX. PT RECEIVING MEDICAL TRANSPORT OFF UNIT. PT'S SPOUSE DRIVING PT HOME. PT COMFORTABLE. PT DENIES HAVING FURTHER CONCERNS.
--- NOTE | 2019-12-10 11:09 | P ---
[facility] [place] [address] [address] PROCEDURE REPORT Name: WOODY KENYON Room #: 218-P [facility] IN M.R.#: [id number] Admission: 11/08/19 Attend Phys: Ashu Donald MD Discharge: 11/09/19 Date of : 35 Report #: [id number] THIS REPORT FOR: cc: Lee Stratton MD, Neal A. MD Couchonnal, Luis F. MD ~ CC: Ashu Stratton PROCEDURE: BiV-ICD implantation. PREOPERATIVE DIAGNOSES: 1. Ischemic cardiomyopathy. 2. Left bundle-branch block. 3. Ejection fraction 30%. 4. 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 POSTOPERATIVE DIAGNOSES: 1. Ischemic cardiomyopathy. 2. Left bundle-branch block. 3. Ejection fraction 30%. 4. 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 ANESTHESIA: The patient underwent MAC anesthesia with no anesthesia related complications. DESCRIPTION OF PROCEDURE: The patient underwent informed consent. We discussed the details of the procedure including the risks, which include but not limited to bleeding, infection, vascular damage, cardiac perforation and pneumothorax. He understood these risks and is willing to proceed. As such, he was brought to the EP laboratory in a fasting and sedated state, prepped and draped in a sterile fashion, received IV antibiotics and underwent a venogram showing patency of left axillary vein. Next, lidocaine was injected at the incision site. An incision was made and a pocket was created over the prepectoral fascia and access was obtained 3 times of left axillary vein using the extrathoracic approach with sheaths positioned using the modified Seldinger technique. Next, under fluoroscopy, a single coil ICD lead was placed in the right ventricular apex and an atrial lead was placed in the right atrial appendage, both with adequate pacing and sensing thresholds. These leads were sutured to the prepectoral fascia. Next, a coronary guide sheath was placed into the right atrium. I quickly obtained access to the coronary sinus and coronary sinus venogram was performed showing that the patient had a nice posterolateral [facility] [address] [place] [address] PROCEDURE REPORT Name: WOODY KENYON Room #: 218-P DIS IN .R.#: [id number] Admission: 11/08/19 Attend Phys: Ashu Donald MD Discharge: 11/09/19 Date of : 35 Report #: [id number], which with somewhat of a oates's hook at the proximal portion. I was able to eventually get a wire into this vessel and advanced a quadripolar lead into a good position. There was adequate pacing and sensing thresholds on this lead and therefore the sheath was split and the lead remained in position with no issues. This lead was also sutured to the prepectoral fascia. Pocket was irrigated with vancomycin. The device was connected to the leads. Tug tests were performed and then the pocket was closed in 2 layers using 2-0 for the deep layer, 3-0 for the mid layer and surgical glue was placed at outer skin layer. The patient awoke neurologically and hemodynamically intact. No complications and no significant bleeding. The implanted device was a [employer], model #503040U, serial #[id number]. Atrial lead was a [employer], model #2088TC, 52 cm, serial #[id number]. RV lead was [employer] Durata, model #[id number]. The LV lead was Quartet, model #1458Q, 86 cm, serial #[id number]. The atrial lead demonstrated P-wave of 3 millivolts, pacing impedance of 440 ohms and pacing threshold of 0.4 volts at 0.5 milliseconds. The RV lead demonstrated R-wave greater than 12 millivolts, pacing impedance of 580 ohms and pacing threshold 0.5 volts at 0.4 milliseconds. The LV lead demonstrated a pacing impedance of 610 ohms and a pacing threshold of 0.75 volts at 0.4 milliseconds, which was programmed from the M3 to M2 pacing configuration. The device was programmed DDDR 60-130 mode. LV lead was programmed to pace 30 milliseconds prior to the RV lead. The VT zone was set at 180-220 beats per minute with 3 rounds of burst followed by 3 rounds of ramp followed by max output shocks. The VF zone was set at greater than 220 beats per minute with ATP while charging followed by max output shocks. CONCLUSIONS: 1. Successful BiV-ICD implantation. 2. Satisfactory atrial right ventricular and left ventricular pacing and sensing thresholds. <ELECTRONICALLY SIGNED> By: Ashu Donald MD 12/10/19 1109 1217 1323 Ashu Donald MD /nt
== END 2019-11-09 11:06 | disposition home or self-care (01) | DRG 242 ==
LOC: CATH 08:01 → 2N 14:02 → CATH 14:41 → ENTRNSPT 11-09 10:53 → EDTRNSPTSTS 11-09 10:54 → 2N 11-09 11:06
PROVIDERS: ADMIT Internal Medicine Cardiovascular Disease
PROC: 02HK0JZ Insertion of Pacemaker Lead into Right Ventricle, Open Approach (ICD-10-PCS; principal; 2019-11-08)
PROC: B5161ZZ Fluoroscopy of Right Subclavian Vein using Low Osmolar Contrast (ICD-10-PCS; principal; 2019-11-08)
PROC: 02H60JZ Insertion of Pacemaker Lead into Right Atrium, Open Approach (ICD-10-PCS; principal; 2019-11-08)
PROC: 0JH607Z Insertion of Cardiac Resynchronization Pacemaker Pulse Generator into Chest Subcutaneous Tissue and Fascia, Open Approach (ICD-10-PCS; principal; 2019-11-08)
PROC: B5171ZZ Fluoroscopy of Left Subclavian Vein using Low Osmolar Contrast (ICD-10-PCS; principal; 2019-11-08)
DX: I44.7 Left bundle-branch block, unspecified (principal); I50.23 Acute on chronic systolic (congestive) heart failure; I25.5 Ischemic cardiomyopathy; I25.10 Atherosclerotic heart disease of native coronary artery without angina pectoris; I50.9 Heart failure, unspecified; I34.0 Nonrheumatic mitral (valve) insufficiency; I71.4 Abdominal aortic aneurysm, without rupture; E78.5 Hyperlipidemia, unspecified; Z82.49 Family history of ischemic heart disease and other diseases of the circulatory system; Z79.82 Long term (current) use of aspirin; Z79.899 Other long term (current) drug therapy; Z88.1 Allergy status to other antibiotic agents; Z88.0 Allergy status to penicillin; Z88.2 Allergy status to sulfonamides; Z95.1 Presence of aortocoronary bypass graft; Z80.9 Family history of malignant neoplasm, unspecified; Z87.891 Personal history of nicotine dependence

== ENCOUNTER → 2019-11-16 | Outpatient (CLI) | payer OTHER, MEDICARE | LOC: SJCVC 14:58 | DX: Z45.02 Encounter for adjustment and management of automatic implantable cardiac defibrillator (principal); I42.9 Cardiomyopathy, unspecified; E78.5 Hyperlipidemia, unspecified; Z95.1 Presence of aortocoronary bypass graft; Z88.0 Allergy status to penicillin; Z88.1 Allergy status to other antibiotic agents; Z88.8 Allergy status to other drugs, medicaments and biological substances; Z79.82 Long term (current) use of aspirin; Z79.891 Long term (current) use of opiate analgesic; Z79.899 Other long term (current) drug therapy; Z87.891 Personal history of nicotine dependence ==

== ENCOUNTER → 2019-11-30 | Outpatient (CLI) | payer OTHER, MEDICARE | LOC: SJCVC 11:23 | DX: I49.3 Ventricular premature depolarization (principal); R94.31 Abnormal electrocardiogram [ECG] [EKG]; I25.5 Ischemic cardiomyopathy; E78.5 Hyperlipidemia, unspecified; Z95.810 Presence of automatic (implantable) cardiac defibrillator; Z79.899 Other long term (current) drug therapy; Z95.1 Presence of aortocoronary bypass graft ==

== ENCOUNTER → 2019-12-17 | Outpatient (CLI) | payer OTHER, MEDICARE | LOC: SJCVCIMAG 08:19 | DX: I08.3 Combined rheumatic disorders of mitral, aortic and tricuspid valves (principal); I44.7 Left bundle-branch block, unspecified; I49.3 Ventricular premature depolarization; I48.91 Unspecified atrial fibrillation; I42.9 Cardiomyopathy, unspecified; R94.31 Abnormal electrocardiogram [ECG] [EKG]; I11.0 Hypertensive heart disease with heart failure; I50.22 Chronic systolic (congestive) heart failure; I25.10 Atherosclerotic heart disease of native coronary artery without angina pectoris; I25.5 Ischemic cardiomyopathy; E78.5 Hyperlipidemia, unspecified; I71.4 Abdominal aortic aneurysm, without rupture; I65.23 Occlusion and stenosis of bilateral carotid arteries; D64.9 Anemia, unspecified; I25.810 Atherosclerosis of coronary artery bypass graft(s) without angina pectoris; Z79.82 Long term (current) use of aspirin; Z79.899 Other long term (current) drug therapy; Z82.49 Family history of ischemic heart disease and other diseases of the circulatory system; Z95.1 Presence of aortocoronary bypass graft; Z95.0 Presence of cardiac pacemaker ==

== ENCOUNTER → 2020-02-08 | Outpatient (CLI) | payer OTHER, MEDICARE | LOC: SJCVC 13:23 | DX: Z45.02 Encounter for adjustment and management of automatic implantable cardiac defibrillator (principal); I49.3 Ventricular premature depolarization; I25.810 Atherosclerosis of coronary artery bypass graft(s) without angina pectoris; I25.5 Ischemic cardiomyopathy; E78.5 Hyperlipidemia, unspecified; I10 Essential (primary) hypertension; Z79.82 Long term (current) use of aspirin; Z79.899 Other long term (current) drug therapy; Z82.49 Family history of ischemic heart disease and other diseases of the circulatory system; Z87.891 Personal history of nicotine dependence; Z95.810 Presence of automatic (implantable) cardiac defibrillator ==

== ENCOUNTER → 2020-07-07 | Outpatient (CLI) | payer OTHER, MEDICARE | LOC: SJCVC 11:51 | PROVIDERS: ATTEND Internal Medicine | DX: R94.31 Abnormal electrocardiogram [ECG] [EKG] (principal); I11.0 Hypertensive heart disease with heart failure; I50.22 Chronic systolic (congestive) heart failure; I25.10 Atherosclerotic heart disease of native coronary artery without angina pectoris; I25.5 Ischemic cardiomyopathy; E78.5 Hyperlipidemia, unspecified; I44.7 Left bundle-branch block, unspecified; I71.4 Abdominal aortic aneurysm, without rupture; I65.23 Occlusion and stenosis of bilateral carotid arteries; D64.9 Anemia, unspecified; Z95.1 Presence of aortocoronary bypass graft ==

== ENCOUNTER → 2021-01-05 | Outpatient (CLI) | payer OTHER, MEDICARE | LOC: SJCVCIMAG 07:58 | PROVIDERS: ATTEND Internal Medicine | DX: I65.23 Occlusion and stenosis of bilateral carotid arteries (principal); I08.3 Combined rheumatic disorders of mitral, aortic and tricuspid valves; I70.8 Atherosclerosis of other arteries; I71.4 Abdominal aortic aneurysm, without rupture; R94.31 Abnormal electrocardiogram [ECG] [EKG]; I11.0 Hypertensive heart disease with heart failure; I50.22 Chronic systolic (congestive) heart failure; I73.9 Peripheral vascular disease, unspecified; M79.604 Pain in right leg; M79.605 Pain in left leg; I25.10 Atherosclerotic heart disease of native coronary artery without angina pectoris; I25.5 Ischemic cardiomyopathy; E78.5 Hyperlipidemia, unspecified; I44.7 Left bundle-branch block, unspecified; D64.9 Anemia, unspecified; Z95.1 Presence of aortocoronary bypass graft; Z98.890 Other specified postprocedural states; Z88.0 Allergy status to penicillin; Z88.8 Allergy status to other drugs, medicaments and biological substances; Z79.82 Long term (current) use of aspirin; Z79.899 Other long term (current) drug therapy; Z87.891 Personal history of nicotine dependence; Z82.49 Family history of ischemic heart disease and other diseases of the circulatory system ==

== ENCOUNTER → 2021-07-13 | Outpatient (CLI) | payer OTHER, MEDICARE | LOC: SJCVCIMAG 08:58 | PROVIDERS: ATTEND Internal Medicine | DX: I71.4 Abdominal aortic aneurysm, without rupture (principal); R94.31 Abnormal electrocardiogram [ECG] [EKG]; I50.22 Chronic systolic (congestive) heart failure; I25.10 Atherosclerotic heart disease of native coronary artery without angina pectoris; I25.5 Ischemic cardiomyopathy; I10 Essential (primary) hypertension; E78.5 Hyperlipidemia, unspecified; I44.7 Left bundle-branch block, unspecified; I65.23 Occlusion and stenosis of bilateral carotid arteries; D64.9 Anemia, unspecified; Z95.1 Presence of aortocoronary bypass graft; Z87.891 Personal history of nicotine dependence; Z72.89 Other problems related to lifestyle; Z88.1 Allergy status to other antibiotic agents; Z88.2 Allergy status to sulfonamides; Z88.0 Allergy status to penicillin; Z79.82 Long term (current) use of aspirin; Z79.899 Other long term (current) drug therapy; Z95.810 Presence of automatic (implantable) cardiac defibrillator ==

== ENCOUNTER → 2021-11-23 | Outpatient (CLI) | payer OTHER, MEDICARE | LOC: SJCVC 10:09 | PROVIDERS: ATTEND Internal Medicine | DX: R94.31 Abnormal electrocardiogram [ECG] [EKG] (principal); I11.0 Hypertensive heart disease with heart failure; I50.22 Chronic systolic (congestive) heart failure; I25.10 Atherosclerotic heart disease of native coronary artery without angina pectoris; I25.5 Ischemic cardiomyopathy; I48.0 Paroxysmal atrial fibrillation; I71.4 Abdominal aortic aneurysm, without rupture; I65.23 Occlusion and stenosis of bilateral carotid arteries; E78.5 Hyperlipidemia, unspecified; I44.7 Left bundle-branch block, unspecified; D64.9 Anemia, unspecified; Z95.1 Presence of aortocoronary bypass graft; Z87.891 Personal history of nicotine dependence; Z72.89 Other problems related to lifestyle; Z79.82 Long term (current) use of aspirin; Z79.899 Other long term (current) drug therapy; Z88.2 Allergy status to sulfonamides; Z88.0 Allergy status to penicillin; Z88.8 Allergy status to other drugs, medicaments and biological substances; Z88.1 Allergy status to other antibiotic agents; Z95.810 Presence of automatic (implantable) cardiac defibrillator; Z82.49 Family history of ischemic heart disease and other diseases of the circulatory system ==